=== PATIENT | female | born 1940 | race Caucasian/White ===

== ENCOUNTER 2017-03-29 16:40 | Emergency (ER) | payer MEDICARE, MEDICAID ==
[~2017-03-29] VITALS: Ht 167.6 cm; Wt 52.0 kg
[~2017-03-29 16:40] MED LIST: ADVAIR DISK1 IN; AMLODIPINE BESYL5 MG PO; BAYER LOW81 MG OR; CIPROFLOXACN500 MG PO; DICLOFENAC75 MG OR; DUONEB IN; HYDROCHLORO25 MG/TAB PO; HYDROCHLOROT25 MG OR; HYDROCHLOROT25 MG PO; LEVOTHYROXIN112 MC1 PO; LEVOTHYROXIN150 MCG PO; LOPRESSOR 550 MG/TAB PO; LORTAB 10-325 M1 TAB PO; LORTAB 5/3255 MG PO; LOVASTATIN20 M1 PO; MEDDOSEPAK PO; METO50TA52 PO; PREDNISONE20 MG OR; PROVENTIL0.083 % IN; QVAR80 MCG IN; ROBAXIN250 MG OR; SPIRIVA HANDIHALER IN; SYNTHROID150 MCG OR; TRAMADOL HCL50 MG PO; ULTRAM50 M1 OR; VENTOLIN HFA IN; VISTARIL25 MG OR; VITAMIN D50000 UNT PO; XARELTO10 MG PO; ZPAK PO
[2017-03-29 16:47] VITALS: BP 131/67
[2017-03-29 18:09] LABS: HEMOGLOBIN 13.5 g/dl (12.0-16.0); IMMATURE GRANULOCYTES 0.5 % (0.0-1.0); MEAN CELL VOLUME 93.5 fL CALC (80.0-100.0); MEAN CORPUSCULAR HGB 30.1 pG CALC (26.0-32.0); MEAN CORPUSCULAR HGB CONC 32.1 g/L CALC (32.0-36.0); NEUT# 10.08 thou/uL (2.00-7.15); RED BLOOD COUNT 4.49 mill/uL (4.20-5.60); RED CELL DISTRI WIDTH 14.4 % (11.5-15.5)
[2017-03-29 18:18] LABS: ALBUMIN 4.2 g/dL (3.2-5.0); ALKALINE PHOSPHATASE 82 u/l (38-126); ANION GAP 15 (6-22 (CALC)); BUN 28 mg/dL (8-23); BUN/CREATININE RATIO 20 (12-20 (CALC)); CALCIUM 9.2 mg/dL (8.4-10.2); CARBON DIOXIDE 28 mmol/l (22-30); CHLORIDE 100 mmol/l (95-108); CREATININE 1.4 mg/dL (0.5-1.0); GFR 36 ML/MIN (>=60 (CALC)); GFR FOR AFR.AMER. 44 ML/MIN (>=60 (CALC)); GLUCOSE 75 mg/dL (82-115); POTASSIUM 3.8 mmol/l (3.5-5.1); SGOT/AST 27 u/l (9-36); SGPT/ALT 24 u/l (11-66); SODIUM 139 mmol/l (137-146); TOTAL PROTEIN 7.6 g/dL (6.3-8.2)
[2017-03-29 18:26] LABS: MYOGLOBIN 61 ng/mL (0 - 62)
[2017-03-29] MEDS ORDERED: MEDDOSEPAK PO (18:42)
[2017-03-29] MEDS ORDERED: ZPAK PO (18:42)
== END 2017-03-29 19:18 | disposition home or self-care (01) ==
LOC: ED 16:40
PROVIDERS: Emergency Medicine
DX: J44.1 Chronic obstructive pulmonary disease with (acute) exacerbation (principal); R06.02 Shortness of breath; R05 Cough; R50.9 Fever, unspecified; R53.1 Weakness; F17.210 Nicotine dependence, cigarettes, uncomplicated

== ENCOUNTER 2017-06-15 11:22 | Emergency (ER) | payer MEDICARE, MEDICAID ==
[~2017-06-15] VITALS: Ht 167.6 cm; Wt 52.0 kg
[2017-06-15] MEDS ORDERED: EC-NAPROSYN500 MG PO (12:57)
[2017-06-15] MEDS ORDERED: FLEXERIL5 M1 PO (12:57)
[2017-06-15 13:05] VITALS: BP 142/71
== END 2017-06-15 13:25 | disposition home or self-care (01) ==
LOC: ED 11:22
DX: M25.532 Pain in left wrist (principal); I10 Essential (primary) hypertension; J44.9 Chronic obstructive pulmonary disease, unspecified; E78.00 Pure hypercholesterolemia, unspecified; E03.9 Hypothyroidism, unspecified; M19.90 Unspecified osteoarthritis, unspecified site; F17.210 Nicotine dependence, cigarettes, uncomplicated

== ENCOUNTER 2017-10-07 10:11 | Emergency (ER) | payer MEDICARE, MEDICAID ==
[~2017-10-07] VITALS: Ht 167.6 cm; Wt 50.0 kg
[~2017-10-07 10:11] MED LIST changes: +EC-NAPROSYN500 MG PO; +FLEXERIL5 M1 PO
[2017-10-07 11:38] LABS: HEMATOCRIT 44.5 % (37.0-47.0); HEMOGLOBIN 14.2 g/dl (12.0-16.0); IMMATURE GRANULOCYTES 0.5 % (0.0-1.0); MEAN CELL VOLUME 94.7 fL CALC (80.0-100.0); MEAN CORPUSCULAR HGB 30.2 pG CALC (26.0-32.0); MEAN CORPUSCULAR HGB CONC 31.9 g/L CALC (32.0-36.0); NEUT# 7.22 thou/uL (2.00-7.15); RED BLOOD COUNT 4.7 mill/uL (4.20-5.60); RED CELL DISTRI WIDTH 14.3 % (11.5-15.5)
[2017-10-07 11:56] LABS: ALBUMIN 4.7 g/dL (3.2-5.0); ALKALINE PHOSPHATASE 116 u/l (38-126); ANION GAP 19 (6-22 (CALC)); BILIRUBIN, TOTAL 1.4 mg/dL (0.0-1.4); BUN 21 mg/dL (8-23); BUN/CREATININE RATIO 20 (12-20 (CALC)); CALCIUM 9.5 mg/dL (8.4-10.2); CARBON DIOXIDE 27 mmol/l (22-30); CHLORIDE 98 mmol/l (95-108); GFR 54 ML/MIN (>=60 (CALC)); GFR FOR AFR.AMER. > 60 ML/MIN (>=60 (CALC)); GLUCOSE 128 mg/dL (82-115); POTASSIUM 4.3 mmol/l (3.5-5.1); SGOT/AST 31 u/l (9-36); SGPT/ALT 33 u/l (11-66); SODIUM 139 mmol/l (137-146); TOTAL PROTEIN 7.6 g/dL (6.3-8.2)
[2017-10-07] MEDS ORDERED: TRAMADOL HYDROC50 MG PO (12:34)
[2017-10-07] MEDS ORDERED: BACTRIM DS1 TAB PO (12:34)
[2017-10-07] MEDS ORDERED: KEFLEX500 MG PO (12:34)
[2017-10-07 13:00] VITALS: BP 143/66
== END 2017-10-07 13:00 | disposition home or self-care (01) ==
LOC: ED 10:11
PROVIDERS: Emergency Medicine
DX: L03.115 Cellulitis of right lower limb (principal); M25.571 Pain in right ankle and joints of right foot

== ENCOUNTER 2017-10-22 10:28 | Emergency (ER) | payer MEDICARE, MEDICAID ==
[~2017-10-22] VITALS: Ht 167.6 cm; Wt 50.0 kg
[~2017-10-22 10:28] MED LIST changes: +BACTRIM DS1 TAB PO; +KEFLEX500 MG PO; +TRAMADOL HYDROC50 MG PO
[2017-10-22 11:16] LABS: HEMATOCRIT 43.7 % (37.0-47.0); HEMOGLOBIN 14.2 g/dl (12.0-16.0); IMMATURE GRANULOCYTES 0.9 % (0.0-1.0); MEAN CELL VOLUME 93.8 fL CALC (80.0-100.0); MEAN CORPUSCULAR HGB 30.5 pG CALC (26.0-32.0); MEAN CORPUSCULAR HGB CONC 32.5 g/L CALC (32.0-36.0); NEUT# 7.1 thou/uL (2.00-7.15); RED BLOOD COUNT 4.66 mill/uL (4.20-5.60); RED CELL DISTRI WIDTH 13.8 % (11.5-15.5)
[2017-10-22] MEDS ORDERED: TORADOL PO (12:59)
[2017-10-22] MEDS ORDERED: CLEOCIN300 MG PO (12:59)
[2017-10-22 13:06] VITALS: BP 137/75
== END 2017-10-22 13:19 | disposition home or self-care (01) ==
LOC: ED 10:28
PROVIDERS: Emergency Medicine
DX: L03.115 Cellulitis of right lower limb (principal)

== ENCOUNTER 2017-11-26 11:50 | Emergency (ER) | payer MEDICARE, MEDICAID ==
[~2017-11-26] VITALS: Ht 167.6 cm; Wt 50.0 kg
[~2017-11-26 11:50] MED LIST changes: +CLEOCIN300 MG PO; +TORADOL PO
[2017-11-26 12:40] LABS: HEMOGLOBIN 13.9 g/dl (12.0-16.0); IMMATURE GRANULOCYTES 0.7 % (0.0-1.0); MEAN CELL VOLUME 93.5 fL CALC (80.0-100.0); MEAN CORPUSCULAR HGB 30.2 pG CALC (26.0-32.0); MEAN CORPUSCULAR HGB CONC 32.3 g/L CALC (32.0-36.0); NEUT# 4.84 thou/uL (2.00-7.15); RED BLOOD COUNT 4.6 mill/uL (4.20-5.60); RED CELL DISTRI WIDTH 14.8 % (11.5-15.5)
[2017-11-26 12:47] LABS: INFLUENZA A NONE DETECTED (NONE DETECT); INFLUENZA B NONE DETECTED (NONE DETECT)
[2017-11-26 12:53] LABS: ANION GAP 16 (6-22 (CALC)); BUN 28 mg/dL (8-23); BUN/CREATININE RATIO 23 (12-20 (CALC)); CALCIUM 9.9 mg/dL (8.4-10.2); CARBON DIOXIDE 29 mmol/l (22-30); CHLORIDE 100 mmol/l (95-108); CREATININE 1.2 mg/dL (0.5-1.0); GFR 44 ML/MIN (>=60 (CALC)); GFR FOR AFR.AMER. 53 ML/MIN (>=60 (CALC)); GLUCOSE 115 mg/dL (82-115); POTASSIUM 4.5 mmol/l (3.5-5.1); SODIUM 140 mmol/l (137-146)
[2017-11-26 13:52] VITALS: BP 124/61
[2017-11-26] MEDS ORDERED: ZPAK PO (13:59)
[2017-11-26] MEDS ORDERED: PREDNISONE50 MG PO (13:59)
== END 2017-11-26 14:18 | disposition left against medical advice (07) ==
LOC: ED 11:50
PROVIDERS: Family Medicine
DX: R07.9 Chest pain, unspecified (principal); I10 Essential (primary) hypertension; J44.9 Chronic obstructive pulmonary disease, unspecified; F17.210 Nicotine dependence, cigarettes, uncomplicated; R06.02 Shortness of breath; Z91.19 Patient's noncompliance with other medical treatment and regimen

== ENCOUNTER 2017-12-05 00:56 | Observation (INO) | payer MEDICARE, MEDICAID ==
[~2017-12-05] VITALS: Ht 165.1 cm; Wt 48.8 kg
[~2017-12-05 00:56] MED LIST changes: +PREDNISONE50 MG PO
--- NOTE | 2017-12-05 00:58 | NUR ---
PATIENT BROUGHT IMMEDIATELY TO TREATMENT AREA. UNDRESSED INTO A GOWN. PLACED ON MONITOR. MD AT BEDSIDE FOR EVAL. TRIAGE COMPLETED AT BEDSIDE.
--- NOTE | 2017-12-05 01:15 | NUR ---
BREATHING TREATMENT GIVEN. BREATHING TECH. FOR GOOD DEPOSITION TO THE LUNGS.
[2017-12-05 01:31] LABS: HEMATOCRIT 42.8 % (37.0-47.0); HEMOGLOBIN 13.8 g/dl (12.0-16.0); IMMATURE GRANULOCYTES 0.8 % (0.0-1.0); MEAN CELL VOLUME 93.2 fL CALC (80.0-100.0); MEAN CORPUSCULAR HGB 30.1 pG CALC (26.0-32.0); MEAN CORPUSCULAR HGB CONC 32.2 g/L CALC (32.0-36.0); NEUT# 8.23 thou/uL (2.00-7.15); RED BLOOD COUNT 4.59 mill/uL (4.20-5.60); RED CELL DISTRI WIDTH 14.6 % (11.5-15.5)
[2017-12-05 01:39] LABS: ANION GAP 18 (6-22 (CALC)); BUN 28 mg/dL (8-23); BUN/CREATININE RATIO 22 (12-20 (CALC)); CALCIUM 9.8 mg/dL (8.4-10.2); CARBON DIOXIDE 26 mmol/l (22-30); CHLORIDE 101 mmol/l (95-108); CREATININE 1.3 mg/dL (0.5-1.0); GFR 40 ML/MIN (>=60 (CALC)); GFR FOR AFR.AMER. 48 ML/MIN (>=60 (CALC)); GLUCOSE 128 mg/dL (82-115); POTASSIUM 4.1 mmol/l (3.5-5.1); SODIUM 141 mmol/l (137-146)
[2017-12-05 01:40] LABS: INFLUENZA A NONE DETECTED (NONE DETECT); INFLUENZA B NONE DETECTED (NONE DETECT)
--- NOTE | 2017-12-05 01:40 | NUR ---
PT'S SAT INCREASED TO 98% WITH O2 ON.
--- NOTE | 2017-12-05 01:58 | NUR ---
PT AMBULATED TO BATHROOM AND BACK. PT INCREASED SOB AND COUGHING. PT TO BE ADMITTED, PULLED ZITHROMYCIN AND WILL GIVE AFTER BLOOD CULTURES DRAWN.
--- NOTE | 2017-12-05 02:16 | NUR ---
LAB IN TO DRAW BLOOD CULTURES.
--- NOTE | 2017-12-05 02:28 | NUR ---
Admission Note Report Given to: BREANNE COATES. Transported by: Wheelchair X Stretcher Transported with: X Nurse Transporter X Patent IV X O2 X Swinging Cut Off Saw Operator
[2017-12-05 02:30] VITALS: BP 172/70
--- NOTE | 2017-12-05 02:30 | NUR ---
PT ARRIVED TO UNIT VIA STRETCHER WITH ER STAFF. AMBULATED TO BED INDEPENDENTLY. C/O OF SOME CHEST PAIN RADIATING TO BACK. RESPIRATIONS SHALLOW WITH OXYGEN IN PLACE AT 1L. HAS EXERTIONAL SOB. BLOOD PRESSURE ELEVATED AT THIS TIME. WILL FOLLOW UP. ORIENTED TO ROOM AND CALL LIGHT SYSTEM. PLAN OF CARE DISCUSSED. PT ENCOURAGED TO VERBALZIE CONCERNS. STATES UNDERSTANDING. ALL CURRENT NEEDS MET AT THIS TIME. ABT INFUSING; NO ADVERSE EFFECTS NOTED. IV SITE APPEARS HEALTHY. SAFETY MEASURES IN PLACE. CALL LIGHT WITHIN REACH.
--- NOTE | 2017-12-05 03:00 | NUR ---
BLOOD PRESSURE DECREASED AFTER PT RESTED ON THE UNIT. SNACK GIVEN AT THIS TIME.
[2017-12-05 03:06] VITALS: BP 147/72
--- NOTE | 2017-12-05 05:31 | NUR ---
PT ASLEEP AT THIS TIME WITH NO SIGNS OF DISTRESS. RESPIRATORY IN TO GIVE BREATHING TREATMENT. RESPIRTIONS EVEN AND UNLABORED ON OXYGEN. IV FLUIDS INFUSING WITHOUT DIFFICULTY; IV SITE APPEARS HEALTHY. SAFETY MEASURES IN PLACE. CALL LIGHT WITHIN REACH.
[2017-12-05 07:17] VITALS: BP 140/71
--- NOTE | 2017-12-05 07:21 | NUR ---
BEDSIDE REPORT RECEIVED FROM ELICEO COATES. PT SITTING UPRIGHT IN BED. REPORTS MILD CRAMP TO LEFT CALF, OTHERWISE DENIES COMPLAINTS. REPORTING OF CONCERNS ENCOURAGED. PLAN OF CARE DISCUSSED. CALL LIGHT REVIEWED AND IN REACH. PT STATES UNDERSTANDING.
[2017-12-05 09:02] LABS: MAGNESIUM 1.7 mg/dL (1.6-2.3)
[2017-12-05 11:00] VITALS: BP 116/56
--- NOTE | 2017-12-05 11:00 | NUR ---
DR. VELAZQUEZ IN TO SEE PT AT THIS TIME.
[2017-12-05 16:00] VITALS: BP 126/58
--- NOTE | 2017-12-05 16:15 | NUR ---
PT SITTING UPRIGHT IN BED. DENIES PAIN. REPORTS "IM JUST WHOOPED." REST ENCORUAGED. FALL PRECAUTIONS REINFORCED. PT STATES UNDERSTANDING.
--- NOTE | 2017-12-05 19:15 | NUR ---
BEDSIDE REPORT RECEIVED FROM JOANARN;PT RESTING IN BED IN SEMI FOWLERS POSITION;POC DISCUSSED AND PT VERBALIZES UNDERSTANDING;RESPIRATIONS EVEN AND UNLABORED ON 02 @ 2L;FALL PRECAUTIONS IN PLACE WITH CALL LIGHT IN REACH;WILL CONTINUE TO MONITOR
[2017-12-05 19:25] VITALS: BP 127/73
--- NOTE | 2017-12-05 19:50 | NUR ---
PT RESTING IN SEMI FOWLERS POSITION WATCHING TV;A&O X3;ASSESSMENT COMPLETED;RESPIRATIONS EVEN AND UNLABORED,SHALLOW ON 02 @ 2L VIA NC;NON-PRODUCTIVE COUGH NOTED;PT DENIES ANY PAIN OR DISCOMFORTS;PAIN SCALE AND REPORTING ENCOURAGED;TELE MONITOR IN PLACE;#22G TO RIGHT FOREARM APPEARS HEALTHY,INFUSING NS W/ 20MEQ @ 60ML/HR WELL;STRONG PEDAL PULSES NOTED;SAFETY PRECAUTIONS REINFORCED;COMMODE AT BEDSIDE;FRESH WATER PROVIDED;PT VOICES NO COMPLAINTS OR NEEDS;PT EDUCATED TO CALL FOR ASSISTANCE IF NEEDED;BED IN THE LOWEST POSITION WITH CALL LIGHT IN REACH;WILL CONTINUE TO MONITOR
[2017-12-05 20:57] LABS: URINE BILIRUBIN - DIPSTICK NEGATIVE (NEGATIVE); URINE BLOOD DIPSTICK NEGATIVE (NEGATIVE); URINE COLOR YELLOW; URINE GLUCOSE - DIPSTICK NEGATIVE (NEGATIVE); URINE KETONE TRACE mg/dL (NEGATIVE); URINE LEUK ESTERASE NEGATIVE (NEGATIVE); URINE NITRITE - DIPSTICK NEGATIVE (Negative); URINE PROTEIN - DIPSTICK TRACE mg/dL (NEG-TRACE); URINE UROBILINOGEN - DIPSTICK 0.2 E.U./dL (0.2)
[2017-12-05 21:03] LABS: URINE CLARITY CLEAR
--- NOTE | 2017-12-05 23:50 | NUR ---
PT RESTING IN SEMI FOWLERS POSITION;YANIQUE MUNSON OBTAINING VS AT THIS TIME;RESPIRATIONS EVEN AND UNLABORED ON O2 @ 2L;TELE MONITOR IN PLACE;IV FLUIDS INFUSING WELL TO RIGHT FOREARM;PT DENIES ANY NEEDS;FALL PRECAUTIONS IN PLACE;WILL CONTINUE TO MONITOR
[2017-12-06] VITALS (7 sets, daily range): BP systolic 92–124; BP diastolic 49–62
--- NOTE | 2017-12-06 05:15 | NUR ---
PT RESTING IN BED WATCHING TV;PT DENIES ANY PAIN;RESPIRATIONS EVEN AND UNLABORED ON 02 @ 2L;TELE MONITOR IN PLACE;FRESH WATER PROVIDED AND PT RE-POSITIONED FOR COMFORT;CALL LIGHT IN REACH;WILL CONTINUE TO MONITOR
[2017-12-06 05:56] LABS: HEMATOCRIT 36.2 % (37.0-47.0); HEMOGLOBIN 11.6 g/dl (12.0-16.0); IMMATURE GRANULOCYTES 0.9 % (0.0-1.0); MEAN CORPUSCULAR HGB 30.4 pG CALC (26.0-32.0); NEUT# 8.59 thou/uL (2.00-7.15); RED BLOOD COUNT 3.81 mill/uL (4.20-5.60); RED CELL DISTRI WIDTH 14.6 % (11.5-15.5)
[2017-12-06 06:04] LABS: CREATININE 1.3 mg/dL (0.5-1.0); MAGNESIUM 1.7 mg/dL (1.6-2.3); POTASSIUM 4.5 mmol/l (3.5-5.1)
--- NOTE | 2017-12-06 07:00 | NUR ---
RECEIVED BEDSIDE REPORT FROM SHIRLENE FENTON. RESTING IN BED WITH EYES CLOSED, AWAKENS EASILY. RESPS EVEN AND UNLABORED ON O2 VIA NC, TELE MONITOR IN PLACE. #22 RFA INFUSING WITHOUT DIFFICULTY, SITE APPEARS HEALTHY. DENIES PAIN OR DISCOMFORT. PLAN OF CARE DISCUSSED. SAFETY PRECAUTIONS REINFORCED. BED IN LOWEST POSITION WITH WHEELS LOCKED. CALL LIGHT WITHIN REACH. WILL CONTINUE TO MONITOR.
--- NOTE | 2017-12-06 10:37 | NUR ---
Went to see pt for allergy clarification. (No problem with acetaminophen) Pt expressed desire to quit smoking. Pt reports that she has been smoking since the age of 18. Pt reports cutting down to 7 cigarettes a day. Pt reports difficulty managing stress because pt's has bladder cancer refractory to multiple surgeries. Pt has appointment with doctor on Monday and was encouraged to bring this up with her physician. Pt is worried that she will not be able to afford the necessary tools to overcome her addiction and stated that she doesn't think Medicare will cover it. Pt was then told that [place] has a separate assistance program for individuals that wish to quit. employee welfare manager was alerted and assured that she would provide further information for this patient.
--- NOTE | 2017-12-06 12:10 | NUR ---
report received from Kyrie Perez RN; care assumed
--- NOTE | 2017-12-06 12:15 | NUR ---
awake in bed; offers no complaints; eating lunch; iv patent; no redness or edema noted at site; o2 per nc; call light within reach; will continue to monitor
--- NOTE | 2017-12-06 12:43 | NUR ---
Dr Stevens and TREVOR Solomon at bedside; orders received to retrive a regular tray for pt; diet confirmed and ordered
--- NOTE | 2017-12-06 15:57 | NUR ---
resting with eyes closed; resp unlabored; o2 per nc; call light within reach
--- NOTE | 2017-12-06 15:59 | NUR ---
Talked to patient today about her medical conditions and her pain medications. patient said that she felt better. she has been breathing better and her pain is reduced. Patient said having a schedule regarding smoking cessation this upcoming Monday morning. Told pt. if she needs additional assistance about quit smoking, she could contact us. Patient did not experience any side effects with her medications. She said solu-medrol has helped reduced her cough and sweezing symptoms. She does not have other questions to the pharmacy at this time.
--- NOTE | 2017-12-06 16:33 | NUR ---
report given to Kyrie Perez RN
--- NOTE | 2017-12-06 17:08 | NUR ---
RESUMED CARE FROM ALEX RAYMUNDO. RESTING IN HIGH FOWLERS WATCHING TV. RESPS EVEN AND UNLABORED ON O2 VIA NC, TELE MONITOR IN PLACE. #22 RFA INFUSING WITHOUT DIFFICULTY, SITE APPEARS HEALTHY. VOICES NO NEEDS AT THIS TIME. CALL LIGHT WITHIN REACH. WILL CONTINUE TO MONITOR.
--- NOTE | 2017-12-06 19:40 | NUR ---
PT ALERT AND ORIENTED. RESP EVEN AND UNLABORED WITH O2 IN PLACE. NO DISTRESS NOTED. ABD DISTENDED;SOFT. HYPOACTIVE BOWEL SOUNDS NOTED. PEDAL PULSES PALPATED BILAT. TELE IN PLACE. IV RFA FLUSHED WITHOUT DIFFICULTY. PT REPOSITIONED FOR COMFORT. PT DENIES ANY PAIN. PT ENCOURGED TO CALL FOR ASSISTANCE. FREQUENT ROUNDS MADE. CALL LIGHT WITHIN REACH.
--- NOTE | 2017-12-07 00:28 | NUR ---
PT RESTING WITH EYES CLOSED. RESP EVEN AND UNLABORED WITH O2 IN PLACE. NO DISTRESS NOTED. IV PATENT. TELE IN PLACE. CALL LIGHT WITHIN REACH.
[2017-12-07 00:33] VITALS: BP 147/65
[2017-12-07 04:07] VITALS: BP 138/69
--- NOTE | 2017-12-07 04:15 | NUR ---
PT WOKE FOR VITALS. RESP EVEN AND UNLABORED WITH O2 IN PLACE. ASSESSMENT UNCHNAGED. NO DISTRESS NOTED. PT DENIES ANY PAIN OR DISCOMFORT. SAFETY PRECAUTIONS REIFORCED. CALL LIGHT WITHIN REACH.
[2017-12-07 04:56] LABS: HEMATOCRIT 35.2 % (37.0-47.0); HEMOGLOBIN 11.2 g/dl (12.0-16.0); MEAN CELL VOLUME 94.9 fL CALC (80.0-100.0); MEAN CORPUSCULAR HGB 30.2 pG CALC (26.0-32.0); MEAN CORPUSCULAR HGB CONC 31.8 g/L CALC (32.0-36.0); NEUT# 10.77 thou/uL (2.00-7.15); RED BLOOD COUNT 3.71 mill/uL (4.20-5.60); RED CELL DISTRI WIDTH 14.8 % (11.5-15.5)
[2017-12-07 05:15] LABS: CREATININE 1.1 mg/dL (0.5-1.0); MAGNESIUM 1.7 mg/dL (1.6-2.3); POTASSIUM 4.5 mmol/l (3.5-5.1)
--- NOTE | 2017-12-07 07:00 | NUR ---
RECEIVED BEDSIDE REPORT FROM YOON FENTON. RESTING IN HIGH FOWLERS WITH EYES CLOSED, AWAKENS EASILY. RESPS EVEN AND UNLABORED ON O2 VIA NC, TELE MONITOR IN PLACE. DENIES PAIN OR DISCOMFORT. PLAN OF CARE DISCUSSED. SAFETY PRECAUTIONS REINFORCED. BED IN LOWEST POSITION WITH WHEELS LOCKED. CALL LIGHT WITHIN REACH. WILL CONTINUE TO MONITOR.
[2017-12-07 07:46] VITALS: BP 134/67
--- NOTE | 2017-12-07 10:00 | NUR ---
PHYSICAL THERAPY IN WITH PT.
--- NOTE | 2017-12-07 11:00 | NUR ---
DR VELAZQUEZ IN WITH PT, NEW ORDERS RECEIVED.
[2017-12-07 11:38] VITALS: BP 127/55
[2017-12-07] MEDS ORDERED: ALBUTEROL SUL0.083 % NEB (13:11)
[2017-12-07] MEDS ORDERED: ZITHROMAX250 MG PO (13:11)
[2017-12-07] MEDS ORDERED: FLORASTOR250 M1 PO (13:11)
[2017-12-07] MEDS ORDERED: PREDNISONE10 MG PO (13:11)
--- NOTE | 2017-12-07 13:45 | NUR ---
Saw pt for discharge med education. Explained dosing of florastor, prednisone, and azithromycin. Spoke to pt at length about quitting smoking. Pt plans to cut down to 3 cigarettes a day, then cut the middle one out once comfortable. Pt is optimistic about quitting and will meet with "Grisel" in the morning to discuss all viable options. Pt expressed that she does not want to be on oxygen and was told the best way to try to avoid that outcome is to quit smoking. Pt said she will call and ask for me when she finishes quitting. Throughout conversation, pt seemed to have difficulty remembering things and often lost her train of thought.
--- NOTE | 2017-12-07 14:35 | NUR ---
PHYSICAL THERAPY IN WITH PT.
--- NOTE | 2017-12-07 15:13 | NUR ---
PT WAS SEEN RESTING IN THE BED WITH O2 VIA NASAL CANNULA SPO2 AT 94%. TOOK O2 OFF PRIOR TO AMBULATION. PT AMBULATED ~100 FT. X 2 WITH RW AND CGA. SPO2 WAS MAINTAINED BETWEEN 92-96% ON ROOM AIR. DENIES SOB OR DIZZINESS. RETURNED TO HER ROOM AND SATIN THE RECLINER. SPO2 ON ROOM AIR INCREASED TO 97%. LEFT PT W/O ADVERSE RXNS NOTED OR REPORTED. CALL TURCIOS AND PHONE WITHIN REACH.
--- NOTE | 2017-12-07 15:14 | NUR ---
Discharge instructions given. Patient verbalizes understanding of same. Discharged in condition via Wheelchair to Home with spouse. All belongings sent with pt.
== END 2017-12-07 15:14 | disposition home or self-care (01) ==
LOC: ED 00:56 → ED-I 01:15 → ED 02:03 → MS2 02:04
PROVIDERS: Family Medicine; Nurse Practitioner Family; ADMIT Internal Medicine; ATTEND Internal Medicine
DX: J44.1 Chronic obstructive pulmonary disease with (acute) exacerbation (principal); E03.9 Hypothyroidism, unspecified; I12.9 Hypertensive chronic kidney disease with stage 1 through stage 4 chronic kidney disease, or unspecified chronic kidney disease; N18.3 Chronic kidney disease, stage 3 (moderate); M19.90 Unspecified osteoarthritis, unspecified site; E78.5 Hyperlipidemia, unspecified; F17.210 Nicotine dependence, cigarettes, uncomplicated; R09.02 Hypoxemia; E46 Unspecified protein-calorie malnutrition; Z68.1 Body mass index [BMI] 19.9 or less, adult; R06.02 Shortness of breath

== ENCOUNTER 2017-12-20 10:15 | Emergency (ER) | payer MEDICARE, MEDICAID ==
[~2017-12-20] VITALS: Ht 165.1 cm; Wt 50.0 kg
[~2017-12-20 10:15] MED LIST changes: +ALBUTEROL SUL0.083 % NEB; +FLORASTOR250 M1 PO; +PREDNISONE10 MG PO; +ZITHROMAX250 MG PO
[2017-12-20 10:40] LABS: HEMATOCRIT 44.2 % (37.0-47.0); MEAN CELL VOLUME 94.2 fL CALC (80.0-100.0); MEAN CORPUSCULAR HGB 29.9 pG CALC (26.0-32.0); MEAN CORPUSCULAR HGB CONC 31.7 g/L CALC (32.0-36.0); NEUT# 9.29 thou/uL (2.00-7.15); RED BLOOD COUNT 4.69 mill/uL (4.20-5.60); RED CELL DISTRI WIDTH 14.5 % (11.5-15.5)
[2017-12-20 11:02] LABS: BUN 18 mg/dL (8-23); BUN/CREATININE RATIO 18 (12-20 (CALC)); CARBON DIOXIDE 27 mmol/l (22-30); CHLORIDE 98 mmol/l (95-108); GFR 54 ML/MIN (>=60 (CALC)); GFR FOR AFR.AMER. > 60 ML/MIN (>=60 (CALC)); SODIUM 140 mmol/l (137-146)
[2017-12-20 11:03] LABS: ANION GAP 20 (6-22 (CALC)); POTASSIUM 5.2 mmol/l (3.5-5.1)
[2017-12-20] MEDS ORDERED: EPIPEN 2-P0.3 MG/0.3 IM (15:06)
[2017-12-20] MEDS ORDERED: PREDNISONE50 MG PO (15:06)
[2017-12-20 15:33] VITALS: BP 142/77
== END 2017-12-20 15:33 | disposition home or self-care (01) ==
LOC: ED 10:15
PROVIDERS: Family Medicine
DX: T88.6XXA Anaphylactic reaction due to adverse effect of correct drug or medicament properly administered, initial encounter (principal); I10 Essential (primary) hypertension; J44.9 Chronic obstructive pulmonary disease, unspecified; M19.90 Unspecified osteoarthritis, unspecified site; E03.9 Hypothyroidism, unspecified; F17.210 Nicotine dependence, cigarettes, uncomplicated; T37.8X5A Adverse effect of other specified systemic anti-infectives and antiparasitics, initial encounter

== ENCOUNTER 2018-01-02 09:25 | Emergency (ER) | payer MEDICARE, MEDICAID ==
[~2018-01-02] VITALS: Ht 165.1 cm; Wt 60.0 kg
[~2018-01-02 09:25] MED LIST changes: +EPIPEN 2-P0.3 MG/0.3 IM
[2018-01-02 10:15] LABS: HEMATOCRIT 41.3 % (37.0-47.0); HEMOGLOBIN 13.1 g/dl (12.0-16.0); IMMATURE GRANULOCYTES 1.6 % (0.0-1.0); MEAN CELL VOLUME 92.6 fL CALC (80.0-100.0); MEAN CORPUSCULAR HGB 29.4 pG CALC (26.0-32.0); MEAN CORPUSCULAR HGB CONC 31.7 g/L CALC (32.0-36.0); NEUT# 8.86 thou/uL (2.00-7.15); RED BLOOD COUNT 4.46 mill/uL (4.20-5.60); RED CELL DISTRI WIDTH 14.6 % (11.5-15.5)
[2018-01-02 10:28] LABS: ALBUMIN 4.4 g/dL (3.2-5.0); ALKALINE PHOSPHATASE 130 u/l (38-126); ANION GAP 19 (6-22 (CALC)); BILIRUBIN, TOTAL 1.3 mg/dL (0.0-1.4); BUN 18 mg/dL (8-23); BUN/CREATININE RATIO 19 (12-20 (CALC)); CARBON DIOXIDE 25 mmol/l (22-30); CHLORIDE 99 mmol/l (95-108); GFR 54 ML/MIN (>=60 (CALC)); GFR FOR AFR.AMER. > 60 ML/MIN (>=60 (CALC)); POTASSIUM 4.5 mmol/l (3.5-5.1); SGOT/AST 35 u/l (9-36); SGPT/ALT 13 u/l (11-66); SODIUM 139 mmol/l (137-146); TOTAL PROTEIN 7.5 g/dL (6.3-8.2)
[2018-01-02] MEDS ORDERED: ULTRAM50 M1 PO (12:31)
[2018-01-02] MEDS ORDERED: INDOMETHACIN25 MG PO (12:31)
[2018-01-02] MEDS ORDERED: DELTASONE20 MG PO (12:31)
[2018-01-02] MEDS ORDERED: DOXYCYCL HYC100 MG PO (12:31)
[2018-01-02 12:44] VITALS: BP 144/74
== END 2018-01-02 14:00 | disposition home or self-care (01) ==
LOC: ED 09:25
PROVIDERS: Emergency Medicine
DX: M10.9 Gout, unspecified (principal); L08.9 Local infection of the skin and subcutaneous tissue, unspecified; M79.605 Pain in left leg; R22.42 Localized swelling, mass and lump, left lower limb; M79.672 Pain in left foot; I10 Essential (primary) hypertension

== ENCOUNTER 2018-01-11 08:11 | Emergency (ER) | payer MEDICARE, MEDICAID ==
[~2018-01-11] VITALS: Ht 165.1 cm; Wt 50.0 kg
[~2018-01-11 08:11] MED LIST changes: +DELTASONE20 MG PO; +DOXYCYCL HYC100 MG PO; +INDOMETHACIN25 MG PO; +ULTRAM50 M1 PO
[2018-01-11 08:55] LABS: HEMATOCRIT 42.2 % (37.0-47.0); HEMOGLOBIN 13.3 g/dl (12.0-16.0); IMMATURE GRANULOCYTES 3.6 % (0.0-1.0); MEAN CELL VOLUME 92.7 fL CALC (80.0-100.0); MEAN CORPUSCULAR HGB 29.2 pG CALC (26.0-32.0); MEAN CORPUSCULAR HGB CONC 31.5 g/L CALC (32.0-36.0); NEUT# 2.36 thou/uL (2.00-7.15); RED BLOOD COUNT 4.55 mill/uL (4.20-5.60); RED CELL DISTRI WIDTH 14.1 % (11.5-15.5)
[2018-01-11 08:56] LABS: ALBUMIN 3.9 g/dL (3.2-5.0); BILIRUBIN, TOTAL 0.4 mg/dL (0.0-1.4); CREATININE 1.1 mg/dL (0.5-1.0); POTASSIUM 4.5 mmol/l (3.5-5.1); TOTAL PROTEIN 6.7 g/dL (6.3-8.2)
[2018-01-11] MEDS ORDERED: PREDNISONE10 MG PO (10:55)
[2018-01-11 11:18] VITALS: BP 156/74
== END 2018-01-11 12:00 | disposition home or self-care (01) ==
LOC: ED 08:11
PROVIDERS: Family Medicine
DX: J44.1 Chronic obstructive pulmonary disease with (acute) exacerbation (principal); I10 Essential (primary) hypertension; E78.00 Pure hypercholesterolemia, unspecified; E03.9 Hypothyroidism, unspecified; M19.90 Unspecified osteoarthritis, unspecified site; F17.210 Nicotine dependence, cigarettes, uncomplicated; Z99.81 Dependence on supplemental oxygen; R06.02 Shortness of breath

== ENCOUNTER 2018-01-12 17:53 | Inpatient (IN) | payer MEDICARE, MEDICAID ==
[~2018-01-12] VITALS: Ht 165.1 cm; Wt 47.2 kg
[2018-01-12] VITALS (7 sets, daily range): BP systolic 71–105; BP diastolic 45–67
--- NOTE | 2018-01-12 17:55 | NUR ---
PT TO ROOM 10 VIA WC ASSISTED W/TRANSFER TO BED. RESP LABORED.
--- NOTE | 2018-01-12 18:05 | NUR ---
IV X 2 INITIATED AND LABS AND BC X 1 COLLECTED. PT IS CONVERSATIONALLY DYSPNEIC AND TACHYPNEIC AT 28 BPM. LS COURSE AND DIMINISHED BILATERALLY. RT AT BEDSIDE NEB X 2 GIVEN.
--- NOTE | 2018-01-12 18:19 | NUR ---
BIPAP INITIATED. PT TOLERATING WELL.
--- NOTE | 2018-01-12 18:32 | NUR ---
AT BEDSIDE TO REASSESS PT.
--- NOTE | 2018-01-12 18:41 | NUR ---
REPORT GIVEN TO BREANNE HURTADO.
--- NOTE | 2018-01-12 18:47 | NUR ---
RECEIVED REPORT FROM BREANNE YODER. TO BEDSIDE PER PT'S REQUEST
[2018-01-12 19:06] LABS: HEMATOCRIT 44.8 % (37.0-47.0); IMMATURE GRANULOCYTES 1.3 % (0.0-1.0); MEAN CELL VOLUME 93.1 fL CALC (80.0-100.0); MEAN CORPUSCULAR HGB 29.1 pG CALC (26.0-32.0); MEAN CORPUSCULAR HGB CONC 31.3 g/L CALC (32.0-36.0); NEUT# 6.62 thou/uL (2.00-7.15); RED BLOOD COUNT 4.81 mill/uL (4.20-5.60); RED CELL DISTRI WIDTH 13.8 % (11.5-15.5)
[2018-01-12 19:10] LABS: INTERNATIONAL NORMALIZED RATIO 0.9 RATIO (0.7-1.3); PROTHROMBIN TIME 10.2 SECONDS (9.0-12.5)
[2018-01-12 19:41] LABS: ALBUMIN 4.4 g/dL (3.2-5.0); BILIRUBIN, TOTAL 0.6 mg/dL (0.0-1.4); CREATININE 1.2 mg/dL (0.5-1.0); POTASSIUM 4.7 mmol/l (3.5-5.1)
--- NOTE | 2018-01-12 19:54 | NUR ---
PAIN DOWN TO 7/10. ROCEPHIN UP PER ORDER. FAMILY AT BEDSIDE. PT REQUESTING WATER, WILL CLARIFY WITH DOCTOR.
--- NOTE | 2018-01-12 20:45 | NUR ---
PT AGITATED WANTS MASK OFF. WATER GIVEN AND EXPLAINED TO PT SHE NEEDS THE MASK AT THIS TIME TO HELP ASSIST HER BREATHING. IF NOT PT MAY NEED TO BE INTUBATED AND PT AGREEABLE WITH MASK SINCE SHE DOES NOT WANT TUBE PLACED.
--- NOTE | 2018-01-12 21:30 | NUR ---
REPORT GIVEN TO BREANNE JAMES. WAITING ON RESPITORY FOR BIPAP MANAGEMENT
--- NOTE | 2018-01-12 21:45 | NUR ---
Admission Note Report Given to: BREANNE JAMES. Transported by: Wheelchair X Stretcher Transported with: X Nurse Transporter X Patent IV X O2 X Line Service Technician BIPAP IN PLACE
--- NOTE | 2018-01-12 21:50 | NUR ---
PT. ARRIVES FROM ER VIA STRETCHER. PT. AMBULATORY WITH ONE PERSON ASSIST FROM ER STRETCHER TO ICU BED #3. TO STANDING SCALE AND THEN TO ICU BED. PT. AWAKE, ALERT, ORIENTED X 3. SKIN WARM AND DRY. AFEBRILE. SINUS TACH ON THE MONITOR. SPO2 IS 98% ON THE BIPAP. PT. REQUESTING THE BIPAP BE REMOVED AT THIS TIME. RT MADE AWARE. BP STABLE AT 105 SYSTOLIC ON ARRIVAL. ORIENTED TO CALL LIGHT AND ROOM. WILL CONTINUE TO MONITOR.
--- NOTE | 2018-01-12 22:00 | NUR ---
SPUTUM SPECIMEN OBTAINED AT THIS TIME. PT. REMOVED FROM BIPAP AT THIS TIME PER HER REQUEST. SPO2 IS 96% AT THIS TIME.
--- NOTE | 2018-01-12 22:03 | NUR ---
PATIENT REQUESTED TO BE OFF BIPAP AND PLACED ON NC. PATIENT WAS PLACED ON NC AT 2200. SPO2 98% HEART RATE 104 AND R. RATE 24.
--- NOTE | 2018-01-12 22:40 | NUR ---
CALL PLACED TO DR. YOUSIF, NOTIFIED OF PATIENT HOME MEDS NOT ORDERED AND CURRENT HYPOTENSION. NEW ORDERS RECEIVED FOR FLUID BOLUS PER SEPSIS PROTOCOL. PER MD, SHE WILL ADD HOME MEDICATIONS TOMORROW.
--- NOTE | 2018-01-12 23:15 | NUR ---
SEPSIS FLUID BOLUS PROTOCOL INITIATED AT THIS TIME. AWAITING CARDINAL TO PROFILE NS BOLUS IN COMPUTER. WILL DOCUMENT IN EMAR ACCORDINGLY.
[2018-01-13] VITALS (10 sets, daily range): BP systolic 82–117; BP diastolic 53–72
--- NOTE | 2018-01-13 | NUR ---
GARCIA PLACED AT THIS TIME. PT. REMAINS MODERATELY SOB. IV FLUID BOLUS INFUSING AT THIS TIME. WILL CONTINUE TO ASSESS FOR HYPOTENSION AND NEED FOR VASOPRESSER ADMINISTRATION.
--- NOTE | 2018-01-13 00:34 | NUR ---
FLUID BOLUS COMPLETE AT THIS TIME. IV FLUIDS NOW INFUSING AT 125 CC/HR. WILL CONTINUE TO ASSESS FOR PERSISTENT HYPOTENSION. CALL LIGHT REMAINS WITHIN REACH. GARCIA DRAINING STRAW COLORED URINE. INTACT AT THIS TIME.
--- NOTE | 2018-01-13 02:15 | NUR ---
PT. RESTING IN BED WITH EYES CLOSED. FAN PROVIDED AT THIS TIME PT. STATES SHE FEELS LIKE SHE NEEDS AIR. SPO2 IS 96% ON 2L VIA NC. CALL LIGHT REMAINS WITHIN REACH. WILL CONTINUE TO MONITOR.
--- NOTE | 2018-01-13 04:00 | NUR ---
PT. RESTING IN BED WITH EYES CLOSED. RESPS REMAIN EVEN, SHALLOW, SLIGHTLY LABORED. BP IMPROVING AT THIS TIME. IV FLUIDS CONTINUE TO INFUSE WITHOUT SIGNS OF INFILTRATION OR EXTRAVASATION. CALL LIGHT REMAINS WITHIN REACH. WILL CONTINUE TO ASSESS.
--- NOTE | 2018-01-13 05:29 | NUR ---
RT. AT BEDSIDE AT THIS TIME. NEB TREATMENT IN PROGRESS. PT. DENIES COMPLAINTS OF PAIN OR NEED. CALL LIGHT REMAINS WITHIN REACH. WILL CONTINUE TO MONITOR.
--- NOTE | 2018-01-13 06:13 | NUR ---
LAB AT BEDSIDE AT THIS TIME. PT. REPOSITIONED FOR COMFORT. DENIES COMPLAINTS OF PAIN OR NEED AT THIS TIME. HR AND SPO2 REMAIN STABLE. PT. REMAINS ON 2L VIA NC. CALL LIGHT REMAINS WITHIN REACH. WILL CONTINUE TO MONITOR.
[2018-01-13 06:46] LABS: HEMATOCRIT 43.4 % (37.0-47.0); HEMOGLOBIN 12.7 g/dl (12.0-16.0); IMMATURE GRANULOCYTES 0.7 % (0.0-1.0); MEAN CORPUSCULAR HGB 29.3 pG CALC (26.0-32.0); MEAN CORPUSCULAR HGB CONC 29.3 g/L CALC (32.0-36.0); NEUT# 7.82 thou/uL (2.00-7.15); RED BLOOD COUNT 4.33 mill/uL (4.20-5.60); RED CELL DISTRI WIDTH 14.1 % (11.5-15.5)
[2018-01-13 06:47] LABS: MEAN CELL VOLUME 100.2 fL CALC (80.0-100.0)
[2018-01-13 07:06] LABS: BILIRUBIN, TOTAL 0.3 mg/dL (0.0-1.4); CREATININE 1.4 mg/dL (0.5-1.0); POTASSIUM 4.9 mmol/l (3.5-5.1); TOTAL PROTEIN 6.7 g/dL (6.3-8.2)
[2018-01-13 07:09] LABS: ALBUMIN 3.5 g/dL (3.2-5.0)
--- NOTE | 2018-01-13 07:30 | NUR ---
PT ALERT AND ORIENTED, RESTING IN BED, AM ASSESSMENT COMPLETED, LUNGS VERY DIMINSHED THRU OUT, O2 ON AT 2L VIA NC, PT HAS SLIGHTLY LABORED RESPS EVEN AT REST, TELE READING SR-ST RATE 80-100, BP STABLE SLIGHTLY HYPOTENSIVE SEE INTERVENTION, LEFT AC WITH 20G X 2, PT STATES SHE HAS BEEN ON HOME O2 FOR A FEW WEEKS, SKIN WARM DRY AND INTACT WITH NO BREAKDOWN NOTED, ABD SOFT BS X 4, SAFETY MEASURES REINFORCED, SPOKE WITH PATIENT REGARDING PLANNED TRANSFER TO [facility] REGARDING POSITIVE TROPONIN, PT GIVES VERBAL AGREEANCE TO TRANSFER, CALL TURCIOS WITHIN REACH, PT REQUESTING WE HOLD OFF CALLING HER UNTIL A LITTLE LATER WHEN HE IS AWAKE AND WE KNOW MORE ABOUT TIME OF TRASNFER ETC...AM TRAY HELD AT THIS TIME UNTIL FURTHER INFO OBTAINED REGARDING TRANSFER.
--- NOTE | 2018-01-13 07:59 | NUR ---
PT MEDICATED ORDERED WITH ASA, METORPOLOL AND LOVENOX, PT EDUCATED REGARDING REASON FOR ADMINISTRATION, EXPECTATIONS AND POSSIBLE SIDE EFFECTS, PT VERBALIZES UNDERSTANDING, AND TAKES MEDICATIONS W/O INCIDENT, TELE CONTINUES READING SR RATE 96 OCC PAC'S AND CONTINUES TO DENY ANY CHEST PAIN OR DISCOMFORT
--- NOTE | 2018-01-13 09:00 | NUR ---
INTO SEE PATIENT AND SPOKE WITH HER REGARDING IMPORTANCE OF NEED TO TRANSFER TO [facility] FOR CARDIOLOGY TREATMENT/WORKUP/POSSIBLE INTERVENTION, PT VERBALIZES AGREEANCE.
--- NOTE | 2018-01-13 09:28 | NUR ---
PT NOW STATING SHE DOESN'T THINK SHE WANTS TO GO TO S... AT BEDSIDE TO DISCUSS WITH PATIENT AGAIN THE IMPORTANCE OF FURTHER CARDIOLOGY INTERVENTION/POSSIBLE TREATMENT RELATED TO POSITIVE TROPONIN. PT ASKING TO TALK TO HER SPOUSE FIRST. CALL PLACED AND PT CURRENTLY SPEAKING WITH SPOUSE
--- NOTE | 2018-01-13 09:45 | NUR ---
SPOKE WITH SPOUSE PT AGREEABLE TO TRANSFER, COMFORT MEASURES PROVIDED CALL TURCIOS WITHIN REACH
--- NOTE | 2018-01-13 11:03 | NUR ---
PT RESTING IN BED, REPOSITIONED FOR COMFORT, AWAITING BED ASSIGNMENT AT [facility] CALL TURCIOS WITHIN REACH.
--- NOTE | 2018-01-13 12:15 | NUR ---
NEB TREATMENT PROVIDED ORDERED/PER PT REQUEST. PT TOLERATED AFTERNOON MEAL A/O INCIDENT, CONSENT OBTAINED [facility]O PLANNED TRANSFER, CALL TURCIOS WITHIN REACH
--- NOTE | 2018-01-13 12:34 | NUR ---
1210Katherine MALIK FROM [facility] CALLED WITH BED ASSIGNMENT OF [phone], NUMBER FOR REPORT [phone] PT NOTIFIED [facility] CALLED FOR TRANSPORT WITH ESTIMATED ETA 1300pm PER DOUG
--- NOTE | 2018-01-13 13:34 | NUR ---
[facility] AT BEDSIDE SPOUSE EMMANUEL CALLED PER PT REQUEST AND INFORMED OF ROOM ASSIGNMENT, AND PHONE NUMBER TO UNIT AT [facility].
--- NOTE | 2018-01-13 13:40 | NUR ---
PT TRANSFERRED TO [facility] VIA [facility] WITH [facility] AT THIS TIME
--- NOTE | 2018-01-13 13:57 | NUR ---
REPORT CALLED TO OSCAR AT [facility], AWARE OF ETA
--- NOTE | 2018-01-15 11:11 | NUR ---
Called and faxed final sputum culture results to BREANNE Hill at [facility] at [phone]
== END 2018-01-13 13:40 | disposition short-term general hospital (02) | DRG 282 ==
LOC: ED 17:53 → ED-I 20:00 → ED 21:08 → ICU 21:09
PROVIDERS: Family Medicine; ADMIT Internal Medicine; ATTEND Internal Medicine
PROC: 5A09357 Assistance with Respiratory Ventilation, Less than 24 Consecutive Hours, Continuous Positive Airway Pressure (ICD-10-PCS; principal; 2018-01-12)
DX: I21.4 Non-ST elevation (NSTEMI) myocardial infarction (principal); Z99.81 Dependence on supplemental oxygen; J44.9 Chronic obstructive pulmonary disease, unspecified; I12.9 Hypertensive chronic kidney disease with stage 1 through stage 4 chronic kidney disease, or unspecified chronic kidney disease; N18.3 Chronic kidney disease, stage 3 (moderate); E03.9 Hypothyroidism, unspecified; E78.5 Hyperlipidemia, unspecified; M19.90 Unspecified osteoarthritis, unspecified site; F17.210 Nicotine dependence, cigarettes, uncomplicated
CPT/HCPCS: J1650